=== PATIENT | female | born 1950 | race African-American/Black ===

== ENCOUNTER 2018-12-09 13:08 | Inpatient (IN) | payer OTHER ==
[~2018-12-09] VITALS: Ht 167.6 cm; Wt 89.8 kg
[2018-12-09] MEDS ORDERED: METF-414 MT (13:27)
[2018-12-09] MEDS ORDERED: AMLO5TAB88 MT (13:27)
[2018-12-09] MEDS ORDERED: SIMV40TA5 PO (13:27)
[2018-12-09] MEDS ORDERED: SITA100T11 MT (13:27)
[2018-12-09] MEDS ORDERED: LOSA100T14 MT (13:27)
[2018-12-09] MEDS ORDERED: ONDANSETRON HCL 4MG/2ML INJ IV STA (13:38)
[2018-12-09] MEDS ORDERED: FENTANYL CITRATE/PF 50MCG/ML 2ML VIAL IV ONE (13:45)
[2018-12-09] MEDS ORDERED: NITROGLYCERIN OINT 1GM/INCH UDPKT TD ONE (13:45)
[2018-12-09] MEDS ORDERED: ASPIRIN 81MG TABLET PO ONE (13:45)
[2018-12-09] MEDS ORDERED: SODIUM CHLORIDE 0.9% 1,000 ML IV ONE (13:55)
[2018-12-09 14:37] LABS: CHLORIDE 104 mEq/L (98-107)
[2018-12-09 14:46] LABS: BASOPHILS % 0.5 % (0.0-2.0); EOSINOPHILS % 1.3 % (0.0-5.0); HEMATOCRIT. 44.9 % (36.0-48.0); HEMOGLOBIN. 15.4 g/dL (12.0-16.0); LYMPHOCYTES % 29.3 % (20.0-50.0); MEAN CORPUSCULAR HEMOGLOBIN 30.6 pg (28.0-32.0); MEAN CORPUSCULAR VOLUME 89.1 fL (81.0-99.0); MEAN PLATELET VOLUME 8.6 fl (7.4-10.4); MONOCYTES % 6.4 % (2.0-8.0); NEUTROPHILS % 62.5 % (40.0-76.0); PLATELET 246 x1000/uL (130-400); RED BLOOD CELL COUNT 5.04 mill/uL (4.2-5.4); RED CELL DISTRIBUTION WIDTH 13.4 % (11.6-14.6); T4 FREE 1.17 ng/dL (0.76-1.46)
[2018-12-09 14:50] LABS: INR 1.1; PARTIAL THROMBOPLASTIN TIME 29.6 sec (23.4-31.0); PROTHROMBIN TIME 10.8 sec (9.1-11.1)
[2018-12-09] MEDS ORDERED: DILTIAZEM HCL 5MG/ML 5ML VIAL IV PRN (16:00)
[2018-12-09] MEDS ORDERED: MAGNESIUM 1 G PREMIX 100 ML IV NR (16:15)
[2018-12-09] MEDS ORDERED: HYDROCODONE/ACETAMINOPHEN 5/325MG TABLET PO PRN (16:45)
[2018-12-09] MEDS ORDERED: CLONIDINE 0.1MG TABLET PO PRN (16:45)
[2018-12-09] MEDS ORDERED: ACETAMINOPHEN 325MG TABLET PO PRN (16:45)
[2018-12-09] MEDS ORDERED: ONDANSETRON HCL 4MG/2ML INJ IV PRN (16:45)
[2018-12-09] MEDS ORDERED: IPRATROPIUM/ALBUTEROL 0.5-3(2.5)MG/3ML NEB INH PRN (16:45)
[2018-12-09] MEDS ORDERED: POTASSIUM CHLORIDE 20MEQ TABLET SR PO NR (18:46)
[2018-12-09] MEDS ORDERED: METOPROLOL TARTRATE 50MG TABLET PO NR (18:48)
[2018-12-09 22:56] VITALS: BP 139/74
[2018-12-10] VITALS (7 sets, daily range): BP systolic 116–150; BP diastolic 57–84
[2018-12-10] MEDS ORDERED: ASPI-1160 PO (02:16)
[2018-12-10] MEDS ORDERED: DEXTROSE 50% WATER 50ML SYRINGE IV PRN (04:45)
[2018-12-10 06:25] LABS: BASOPHILS % 0.5 % (0.0-2.0); EOSINOPHILS % 1.1 % (0.0-5.0); LYMPHOCYTES % 29.6 % (20.0-50.0); MEAN CORPUSCULAR HEMOGLOBIN 30.7 pg (28.0-32.0); MEAN CORPUSCULAR VOLUME 89.7 fL (81.0-99.0); MEAN PLATELET VOLUME 8.5 fl (7.4-10.4); MONOCYTES % 10.1 % (2.0-8.0); NEUTROPHILS % 58.7 % (40.0-76.0); PLATELET 230 x1000/uL (130-400); RED BLOOD CELL COUNT 4.57 mill/uL (4.2-5.4); RED CELL DISTRIBUTION WIDTH 13.6 % (11.6-14.6)
[2018-12-10 06:31] LABS: CHLORIDE 107 mEq/L (98-107)
[2018-12-10 06:40] LABS: LDL CHOLESTEROL 69 mg/dL (5-100)
[2018-12-10 06:42] LABS: HDL CHOLESTEROL 44 mg/dL (40-59)
[2018-12-10] MEDS: BLOOD SUGAR DIAGNOSTIC STRIP TEST SCH ×4 (07:01→20:39)
[2018-12-10] MEDS ORDERED: INSULIN LISPRO 100 UNITS/ML SUBCUT SCH (08:10)
[2018-12-10] MEDS: ENOXAPARIN 40MG/0.4ML SYR SUBCUT SCH (09:51)
[2018-12-10] MEDS: LOSARTAN POTASSIUM 100 MG TABLET PO SCH (09:51)
[2018-12-10] MEDS: ASPIRIN 81MG EC TABLET PO SCH (09:52)
[2018-12-10] MEDS: METOPROLOL TARTRATE 50MG TABLET PO SCH ×2 (09:53→20:49)
[2018-12-10] MEDS: INSULIN LISPRO 100 UNITS/ML SUBCUT SCH ×3 (13:06→20:51)
[2018-12-10] MEDS ORDERED: REGADENOSON 0.4 MG/5 ML IV SCH (13:15)
[2018-12-10] MEDS ORDERED: INSULIN GLARGINE UD 100 UNITS/ML SYR SUBCUT NR (14:00)
[2018-12-10] MEDS: AMLODIPINE 5MG TABLET PO SCH (20:51)
[2018-12-10] MEDS ORDERED: ATORVASTATIN CALCIUM 40MG TABLET PO SCH (21:00)
[2018-12-11] VITALS: BP 132/72
[2018-12-11 04:00] VITALS: BP 141/78
[2018-12-11 06:54] LABS: BASOPHILS % 0.4 % (0.0-2.0); EOSINOPHILS % 1.8 % (0.0-5.0); HEMATOCRIT. 42.2 % (36.0-48.0); HEMOGLOBIN. 14.4 g/dL (12.0-16.0); LYMPHOCYTES % 38.7 % (20.0-50.0); MEAN CORPUSCULAR HEMOGLOBIN 30.4 pg (28.0-32.0); MEAN CORPUSCULAR VOLUME 88.8 fL (81.0-99.0); MEAN PLATELET VOLUME 8.6 fl (7.4-10.4); MONOCYTES % 9.5 % (2.0-8.0); NEUTROPHILS % 49.6 % (40.0-76.0); PLATELET 239 x1000/uL (130-400); RED BLOOD CELL COUNT 4.75 mill/uL (4.2-5.4); RED CELL DISTRIBUTION WIDTH 13.9 % (11.6-14.6)
[2018-12-11] MEDS: BLOOD SUGAR DIAGNOSTIC STRIP TEST SCH ×2 (07:40→13:35)
[2018-12-11 08:00] VITALS: BP 145/78
[2018-12-11] MEDS: INSULIN LISPRO 100 UNITS/ML SUBCUT SCH ×2 (08:10→13:35)
[2018-12-11 08:57] LABS: CHLORIDE 106 mEq/L (98-107)
[2018-12-11] MEDS: ASPIRIN 81MG EC TABLET PO SCH (09:00)
[2018-12-11] MEDS: ENOXAPARIN 40MG/0.4ML SYR SUBCUT SCH (09:00)
[2018-12-11] MEDS: METOPROLOL TARTRATE 50MG TABLET PO SCH (09:00)
[2018-12-11] MEDS: LOSARTAN POTASSIUM 100 MG TABLET PO SCH (09:00)
[2018-12-11] MEDS: AMLODIPINE 5MG TABLET PO SCH (09:00)
[2018-12-11] MEDS ORDERED: REGADENOSON 0.4 MG/5 ML IV ONE (09:11)
[2018-12-11 12:00] VITALS: BP 136/53
[2018-12-11 15:12] VITALS: BP 136/79
[2018-12-11 16:00] VITALS: BP 132/71
[2018-12-11] MEDS ORDERED: INSULIN GLARGINE UD 100 UNITS/ML SYR SUBCUT NR (16:00)
[2018-12-11] MEDS ORDERED: DIGO125T82 MT (16:17)
[2018-12-11] MEDS ORDERED: DILT120T13 MT (16:18)
[2018-12-11] MEDS ORDERED: INSU100I28 SQ (16:19)
== END 2018-12-11 17:19 | disposition home or self-care (01) | DRG 308 ==
LOC: ER 13:35 → 7WST 15:14 → EDBEDREQ 15:21 → ENRESERV 20:57
PROVIDERS: ADMIT Internal Medicine; ATTEND Internal Medicine
DX: I47.1 Supraventricular tachycardia (principal); I50.33 Acute on chronic diastolic (congestive) heart failure; I11.0 Hypertensive heart disease with heart failure; I20.9 Angina pectoris, unspecified; R07.89 Other chest pain; I49.3 Ventricular premature depolarization; E78.5 Hyperlipidemia, unspecified; E11.65 Type 2 diabetes mellitus with hyperglycemia; R06.03 Acute respiratory distress; E66.9 Obesity, unspecified; Z82.49 Family history of ischemic heart disease and other diseases of the circulatory system; Z83.3 Family history of diabetes mellitus; Z90.710 Acquired absence of both cervix and uterus; Z79.899 Other long term (current) drug therapy; Z68.32 Body mass index [BMI] 32.0-32.9, adult
CPT/HCPCS: 36415; 71045; 78452; 80048; 80061; 82962; 83036; 83735; 83880; 84439; 84443; 84484; 93005; 93017; 93306; 96374; 96375; 99285; A9500; J1650; J1815; J2405; J2785; J3010; J3475; J7030; J7050

== ENCOUNTER 2019-03-24 08:10 | Emergency (ER) | payer MEDICARE, OTHER ==
[~2019-03-24] VITALS: Ht 167.6 cm; Wt 89.0 kg
[~2019-03-24 08:10] MED LIST: AMLO5TAB88 MT; ASPI-1160 PO; DIGO125T82 MT; DILT120T13 MT; INSU100I28 SQ; LOSA100T14 MT; METF-414 MT; SIMV40TA5 PO; SITA100T11 MT
[2019-03-24] MEDS ORDERED: MECLIZINE 25MG TABLET PO ONE (09:30)
[2019-03-24] MEDS ORDERED: ASPIRIN 81MG TABLET PO ONE (09:30)
[2019-03-24 09:37] LABS: EOSINOPHILS % 1.4 % (0.0-5.0); HEMATOCRIT. 46.4 % (36.0-48.0); MEAN CORPUSCULAR HEMOGLOBIN 30.3 pg (28.0-32.0); NEUTROPHILS % 64.6 % (40.0-76.0); PLATELET 236 x1000/uL (130-400); RED BLOOD CELL COUNT 5.27 mill/uL (4.2-5.4); RED CELL DISTRIBUTION WIDTH 13.4 % (11.6-14.6)
[2019-03-24 09:44] LABS: CHLORIDE 102 mEq/L (98-107)
[2019-03-24 09:45] LABS: PROTHROMBIN TIME 10.5 sec (9.6-11.0)
[2019-03-24 10:49] LABS: CLARITY URINE CLEAR (CLEAR); COLOR URINE YELLOW (YELLOW); KETONES URINE 2+ (NEGATIVE); LEUKOCYTE ESTERASE URINE NEGATIVE (NEGATIVE); NITRITE URINE NEGATIVE (NEGATIVE); OCCULT BLOOD URINE NEGATIVE (NEGATIVE); PH URINE 6.5 (4.5-8.0); PROTEIN URINE 1+ (NEGATIVE); SPECIFIC GRAVITY URINE 1.026 (1.005-1.030); UROBILINOGEN URINE 0.2 E.U./dL (0.2-1.0)
[2019-03-24] MEDS ORDERED: DEXTROSE 50% WATER 50ML SYRINGE IV PRN (12:00)
[2019-03-24] MEDS ORDERED: CLONIDINE 0.1MG TABLET PO NR (12:13)
[2019-03-24] MEDS ORDERED: INSULIN GLARGINE UD 100 UNITS/ML SYR SUBCUT NR (12:30)
[2019-03-24] MEDS ORDERED: BLOOD SUGAR DIAGNOSTIC STRIP TEST SCH (13:00)
[2019-03-24] MEDS ORDERED: INSULIN LISPRO 100 UNITS/ML SUBCUT SCH (13:20)
[2019-03-24 14:40] VITALS: BP 178/97
== END 2019-03-24 14:41 | disposition short-term general hospital (02) ==
LOC: ER 08:10 → EDBEDREQTM 11:32 → EDBEDREQ 11:32 → CANBEDREQ 12:31 → ER 14:41
DX: R07.89 Other chest pain (principal); R42 Dizziness and giddiness; E11.9 Type 2 diabetes mellitus without complications; E78.00 Pure hypercholesterolemia, unspecified; I10 Essential (primary) hypertension; Z90.710 Acquired absence of both cervix and uterus; Z98.890 Other specified postprocedural states; Z79.82 Long term (current) use of aspirin; Z79.4 Long term (current) use of insulin; Z79.899 Other long term (current) drug therapy
CPT/HCPCS: 36415; 70450; 71045; 80053; 81003; 82962; 83036; 83880; 84484; 85025; 85610; 93005; 96372; 99285; J1815; J8597